=== PATIENT | female | born 1980 | race American Indian/Alaskan Native ===

== ENCOUNTER 2016-12-05 23:33 | Inpatient (IN) | payer OTHER ==
--- NOTE | 2016-12-06 00:26 | Emergency Department Report ---
HPI - General Time Seen by Provider: 12/06/16 00:05 - HPI HPI: Room 6 The patient is a 36-year-old female presenting with a chief complaint of SVT. 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 Patient denied having chest pain, shortness of breath nausea or vomiting. The patient states it made her body feel as though it was throbbing. The patient states she took a few deep breaths to see if it would help but it did not change her heart rate. 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 EMS found the patient in SVT with a heart rate of approximately 190 administered 6 of adenosine IV with resolution of the SVT. Patient is currently asymptomatic Location: Heart Duration: [see above] Quality: Palpitations Severity: 190 bpm Modifying factors: [see above] Context: [see above] Mode of transportation: EMS ED Past Medical Hx - Past Medical History Previous Medical History?: No Hx Hypertension: Yes (Patient was told that BP is high at a doctor visit.NOT on any Rx for that.) Additional medical history: h/o htn in family. - Surgical History Past Surgical History?: No - Family History Family history: no significant - Social History Smoking Status: Current Every Day Smoker (1/3 pack per day) Substance Use Type: None (denies illicit drug use), Alcohol (almost daily after work) - Medications Home Medications: Home Medications Medication Instructions Recorded Confirmed Last Taken Type No Known Home Medications [No 12/06/16 12/06/16 Unknown History Reported Home Medications] ED Review of Systems ROS: Stated complaint: ACCELERATED HEART RATE Other details as noted in HPI Comment: All other systems reviewed and negative Constitutional: denies: chills, fever Eyes: denies: eye pain, eye discharge, vision change ENT: denies: ear pain, throat pain Respiratory: denies: cough, shortness of breath, wheezing Cardiovascular: palpitations. denies: chest pain Endocrine: no symptoms reported Gastrointestinal: denies: abdominal pain, nausea, diarrhea Genitourinary: denies: urgency, dysuria, discharge Musculoskeletal: denies: back pain, joint swelling, arthralgia Skin: denies: rash, lesions Neurological: denies: headache, weakness, paresthesias Psychiatric: denies: anxiety, depression Hematological/Lymphatic: denies: easy bleeding, easy bruising Physical Exam - Physical Exam Vital Signs: Vital Signs 12/06/16 12/06/16 12/06/16 00:00 00:14 00:20 Temperature 99.2 F 99.2 F Pulse Rate 112 H 112 H Respiratory 18 17 17 Rate Blood Pressure 134/96 Blood Pressure 134/96 [Left] O2 Sat by Pulse 100 100 100 Oximetry Physical Exam: GENERAL: The patient is well-developed well-nourished female sitting on stretcher not appearing to be in acute distress. [] HEENT: Normocephalic. Atraumatic. Extraocular motions are intact. Patient has moist mucous membranes. NECK: Supple. Trachea midline CHEST/LUNGS: Clear to auscultation. There is no respiratory distress noted. HEART/CARDIOVASCULAR: Regular. There is no tachycardia. There is no gallop rub or murmur. ABDOMEN: Abdomen is soft, nontender. Patient has normal bowel sounds. There is no abdominal distention. SKIN: There is no rash. There is no edema. There is no diaphoresis. NEURO: The patient is awake, alert, and oriented. The patient is cooperative. The patient has normal speech MUSCULOSKELETAL: There is no evidence of acute injury. ED Course Vital Signs 12/06/16 12/06/16 12/06/16 00:00 00:14 00:20 Temperature 99.2 F 99.2 F Pulse Rate 112 H 112 H Respiratory 18 17 17 Rate Blood Pressure 134/96 Blood Pressure 134/96 [Left] O2 Sat by Pulse 100 100 100 Oximetry ED Medical Decision Making - Lab Data Result diagrams: 12/06/16 00:20 12/06/16 00:20 Laboratory Tests 12/06/16 12/06/16 12/06/16 00:20 00:20 00:20 WBC 7.2 RBC 4.42 Hgb 11.7 Hct 34.7 MCV 79 MCH 27 L MCHC 34 RDW 17.1 H Plt Count 178 Lymph % (Auto) 31.7 [place] % (Auto) 13.8 H Eos % (Auto) 0.4 Baso % (Auto) 1.0 Lymph # 2.3 [place] # 1.0 H Eos # 0.0 Baso # 0.1 Seg Neutrophils % 53.1 Seg Neutrophils # 3.8 PT 14.1 INR 1.10 Sodium 142 Potassium 3.8 Chloride 105.2 Carbon Dioxide 22 Anion Gap 19 BUN 11 Creatinine 0.9 Estimated GFR > 60 BUN/Creatinine Ratio 12.22 Glucose 75 Calcium 8.8 CK-MB (CK-2) 1.1 Troponin T < 0.010 NT-Pro-B Natriuret Pep 51.59 TSH Free T4 HCG, Qual Urine Opiates Screen Urine Methadone Screen Ur Barbiturates Screen Ur Phencyclidine Scrn Ur Amphetamines Screen U Benzodiazepines Scrn Urine Cocaine Screen U Marijuana (THC) Screen 12/06/16 12/06/16 12/06/16 00:20 00:20 01:01 WBC RBC Hgb Hct MCV MCH MCHC RDW Plt Count Lymph % (Auto) [place] % (Auto) Eos % (Auto) Baso % (Auto) Lymph # [place] # Eos # Baso # Seg Neutrophils % Seg Neutrophils # PT INR Sodium Potassium Chloride Carbon Dioxide Anion Gap BUN Creatinine Estimated GFR BUN/Creatinine Ratio Glucose Calcium CK-MB (CK-2) Troponin T NT-Pro-B Natriuret Pep TSH 2.510 Free T4 1.14 HCG, Qual Negative Urine Opiates Screen Presumptive negative Urine Methadone Screen Presumptive negative Ur Barbiturates Screen Presumptive negative Ur Phencyclidine Scrn Presumptive negative Ur Amphetamines Screen Presumptive negative U Benzodiazepines Scrn Presumptive negative Urine Cocaine Screen Presumptive negative U Marijuana (THC) Screen Presumptive negative - EKG Data -: EKG Interpreted by Me EKG shows normal: sinus rhythm Rate: tachycardia (110 bpm) - EKG Data When compared to previous EKG there are: other (EMS EKG reveals PSVT at 1 77 bpm ) - Radiology Data Radiology results: image reviewed (chest x-ray) interpreted by me: Chest x-ray-no focal infiltrates, no pneumothorax - Differential Diagnosis PSVT, hyperthyroidism, electrolyte imbalance Critical care attestation.: If time is entered above; I have spent that time in minutes in the direct care of this critically ill patient, excluding procedure time. ED Disposition Clinical Impression: PSVT (paroxysmal supraventricular tachycardia) Disposition: OP ADMITTED IP TO THIS HOSP Is pt being admited?: Yes Does the pt Need Aspirin: Yes Condition: Fair Time of Disposition: 01:20 (hospitalist notified)
[2016-12-06 00:37] LABS: Eosinophils % (Auto) 0.4 % (0.0-4.3); Hematocrit 34.7 % (30.3-42.9); Hemoglobin 11.7 gm/dl (10.1-14.3); Mean Corpuscular HGB Conc 34 % (30-34); Mean Corpuscular Hemoglobin 27 pg (28-32); Mean Corpuscular Volume 79 fl (79-97); Platelet Count 178 K/mm3 (140-440); Red Blood Count 4.42 M/mm3 (3.65-5.03); Red Cell Distribution Width 17.1 % (13.2-15.2); White Blood Count 7.2 K/mm3 (4.5-11.0)
[2016-12-06 00:47] LABS: INR 1.1 (0.87-1.13)
[2016-12-06 01:02] LABS: Anion Gap 19 mmol/L; BUN/Creatinine Ratio 12.22; Blood Urea Nitrogen 11 mg/dL (7-17); Calcium 8.8 mg/dL (8.4-10.2); Carbon Dioxide 22 mmol/L (22-30); Chloride 105.2 mmol/L (98-107); Glucose 75 mg/dL (65-100); Potassium 3.8 mmol/L (3.6-5.0); Sodium 142 mmol/L (137-145)
[2016-12-06 01:04] LABS: Urine Drugs of Abuse Note Disclamer
[2016-12-06 01:04] LABS: Creatine Kinase MB 1.1 ng/mL (0.0-4.0)
[2016-12-06] MEDS ORDERED: ATIVAN IV PRN ×2 (02:02)
[2016-12-06] MEDS ORDERED: TYLENOL PO PRN (02:03)
[2016-12-06] MEDS ORDERED: DULCOLAX PR PRN (02:03)
[2016-12-06] MEDS ORDERED: ZOFRAN IV PRN (02:03)
[2016-12-06] MEDS ORDERED: MILK OF MAGNESIA PO PRN (02:03)
--- NOTE | 2016-12-06 02:05 | History and Physical Report ---
History of Present Illness Date of examination: 12/06/16 History of present illness: 36-year-old woman with a history of alcohol abuse comes emergency room because she experienced her heart racing while she was at work. She consumed 3 beers a day, last drink was on Tuesday. On Tuesday night her roommate noted her hands were shaking. Patient was found to be in SVT with a rate of 170, was given 1 dose of adenosine 6 mg with good success Patient denies chest pain, shortness of breath, cough, abdominal pain, hematochezia, dysuria, frequency, focal weakness, dysarthria, fever chills, polydipsia polyuria, hot or cold intolerance, easy bruisability, or rash or bleeding from mucosal membrane, rhinorrhea, epistaxis, earache, tinnitus, blurry vision, eye discharge, anxiety, depression. Other review of systems negative PAST SURGICAL HISTORY: None SOCIAL HISTORY:Alcohol use as discussed above, no tobacco or drugs FAMILY HISTORY: Hypertension Medications and Allergies Allergies Allergy/AdvReac Type Severity Reaction Status Date / Time shellfish derived Allergy Swelling Verified 12/06/16 00:41 Home Medications Medication Instructions Recorded Confirmed Last Taken Type Metoprolol Xl [Metoprolol 25 mg PO QDAY #30 tablet 12/06/16 Unknown Rx SUCCINATE ER TAB] Exam - Physical Exam Narrative exam: Gen. appearance: Patient lying in bed, no apparent distress HEENT: Normocephalic, atraumatic, pupils equally round and reactive to light, extraocular movement intact, and no sclericterus,. No JVD or thyromegaly or nodule,neck supple, no carotid bruit ,mucous membranes moist, no exudate or erythema Heart: S1, S2, regular rate and rhythm Lungs: Clear to auscultation bilaterally, breathing comfortable Abdomen: Positive bowel sounds, nontender, nondistended, no organomegaly Extremity: Positive tremors, No edema, cyanosis, clubbing Skin: No rash, nodules, warm, dry Neuro: Oriented 3, cranial nerves II-12 intact, speech is fluent, motor and sensory intact - Constitutional Vitals: Temp Pulse Resp BP Pulse Ox 99.2 F 89 15 131/89 99 12/06/16 01:04 12/06/16 01:55 12/06/16 01:04 12/06/16 01:04 12/06/16 01:04 Results - Labs CBC & Chem 7: 12/06/16 00:20 12/06/16 00:20 Labs: Abnormal lab results 12/06/16 Range/Units 00:20 MCH 27 L (28-32) pg RDW 17.1 H (13.2-15.2) % Green % (Auto) 13.8 H (0.0-7.3) % Green # 1.0 H (0.0-0.8) K/mm3 - Imaging and Cardiology EKG: image reviewed Assessment and Plan SVT probably related to alcohol Alcohol abuse Admits medicine Start CIWA protocol with IV Ativan, check cardiac enzymes, echo consult cardiology, start DVT prophylaxis
[2016-12-06 02:09] LABS: Creatine Kinase 78 units/L (30-135)
[2016-12-06 06:02] LABS: Creatine Kinase MB 1.3 ng/mL (0.0-4.0)
--- NOTE | 2016-12-06 09:33 | XRay Report ---
AP CHEST: AP view of the chest demonstrates a normal mediastinal and cardiac contour with clear lungs and normal bony and soft tissue structures. IMPRESSION: Normal AP chest.
[2016-12-06 10:07] VITALS: BP 120/70
--- NOTE | 2016-12-06 10:22 | Discharge Summary ---
Providers - Providers Date of Admission: 12/06/16 02:06 Date of discharge: 12/06/16 Attending physician: IAM DAVIS MD Primary care physician: [employer]PERVISOR Hospitalization Reason for admission: SVT Condition: Stable Hospital course: 36-year-old woman with a history of alcohol abuse comes emergency room because she experienced her heart racing while she was at work. She consumed 3 beers a day, last drink was on Tuesday. On Tuesday night her roommate noted her hands were shaking. Patient was found to be in SVT with a rate of 170, was given 1 dose of adenosine 6 mg with good success Patient denies chest pain, shortness of breath, cough, abdominal pain, hematochezia, dysuria, frequency, focal weakness, dysarthria, fever chills, polydipsia polyuria, hot or cold intolerance, easy bruisability, or rash or bleeding from mucosal membrane, rhinorrhea, epistaxis, earache, tinnitus, blurry vision, eye discharge, anxiety, depression. Other review of systems negative and patient was monitored in the hospital reveals no recurrence. She did receive a specific counseling about drinking alcohol patient verbalized understanding. She is to follow-up with cardiology outpatient in 2 weeks for review of echocardiogram. She was started on Toprol and patient verbalize understanding of side effects associate with medication. Discharge diagnosis Paroxysmal supraventricular tachycardia Alcohol abuse Disposition: DISCHARGED TO HOME OR SELFCARE Time spent for discharge: 35 mins Core Measure Documentation - Palliative Care Palliative Care/ Comfort Measures: Not Applicable - Core Measures Any of the following diagnoses?: none - VTE Discharge Requirements Deep Vein Thrombosis/Pulmonary Embolism Present on Admission: No Exam - Physical Exam Narrative exam: VITAL SIGNS: Reviewed. GENERAL: The patient appeared well nourished and normally developed. Vital signs as documented. HEAD: No signs of head trauma. EYES: Pupils are equal. Extraocular motions intact. EARS: Hearing grossly intact. MOUTH: Oropharynx is normal. NECK: No adenopathy, no JVD. CHEST: Chest with clear breath sounds bilaterally. No wheezes, rales, or rhonchi. CARDIAC: Regular rate and rhythm. S1 and S2, without murmurs, gallops, or rubs. VASCULAR: No Edema. Peripheral pulses normal and equal in all extremities. ABDOMEN: Soft, without detectable tenderness. No sign of distention. No rebound or guarding, and no masses palpated. Bowel Sounds normal. MUSCULOSKELETAL: Good range of motion of all major joints. Extremities without clubbing, cyanosis or edema. NEUROLOGIC EXAM: Alert and oriented x 3. No focal sensory or strength deficits. Speech normal. Follows commands. PSYCHIATRIC: Mood normal. SKIN: Multiple skin tattoos - Constitutional Vitals: Temp Pulse Resp BP Pulse Ox 99.1 F 94 H 18 120/70 98 12/06/16 07:45 12/06/16 07:45 12/06/16 07:45 12/06/16 07:45 12/06/16 07:45 Plan Activity: advance as tolerated, fall precautions Diet: low fat Follow up with: PRIMARY CAREMD [Primary Care Provider] - 7 Days PEGGY ARANGO MD [Staff Physician] - 7 Days Forms: Work/School Release Form(ED) Prescriptions: Metoprolol Xl [Metoprolol SUCCINATE ER TAB] 25 mg PO QDAY #30 tablet
[2016-12-06] MEDS ORDERED: TOPROL XL PO SCH (11:00)
[2016-12-06 11:11] LABS: Creatine Kinase MB 1.4 ng/mL (0.0-4.0)
[2016-12-06 11:12] LABS: Creatine Kinase 66 units/L (30-135)
--- NOTE | 2016-12-06 12:51 | Consultation ---
History of Present Illness Consult date: 12/06/16 Consult reason: other (SVT) History of present illness: While at work yesterday, she suddenly developed palpitations prompting activation of the EMS. She was given IV adenosine 6 mg which converted her SVT to sinus rhythm. She denies dizziness, chest pain, or dyspnea. She claims that she had one brief episode of palpitations and long time ago but never sought medical attention. Past History Past Medical History: No medical history, other (none) Past Surgical History: No surgical history Social history: alcohol abuse. denies: smoking Family history: denies: CAD Medications and Allergies Allergies Allergy/AdvReac Type Severity Reaction Status Date / Time shellfish derived Allergy Swelling Verified 12/06/16 00:41 Home Medications Medication Instructions Recorded Confirmed Last Taken Type Metoprolol Xl [Metoprolol 25 mg PO QDAY #30 tablet 12/06/16 Unknown Rx SUCCINATE ER TAB] Review of Systems Constitutional: no fever, no chills Ears, nose, mouth and throat: no ear pain, no ear discharge, no sore throat Cardiovascular: palpitations, no chest pain, no orthopnea, no lightheadedness, no shortness of breath Respiratory: no cough, no hemoptysis, no shortness of breath Gastrointestinal: no abdominal pain, no nausea, no vomiting, no diarrhea, no constipation Genitourinary Female: no dysuria, no urinary frequency Rectal: no pain, no bleeding Musculoskeletal: no neck stiffness, no neck pain, no myalgias Integumentary: no rash, no pruritis Neurological: no numbness, no tingling, no headaches Endocrine: no cold intolerance, no heat intolerance Hematologic/Lymphatic: no easy bruising, no easy bleeding Allergic/Immunologic: no urticaria, no allergic rhinitis, no wheezing Physical Examination Vital Signs Last Vital Signs Temp 99.1 F 12/06/16 07:45 Pulse 94 H 12/06/16 11:34 Resp 18 12/06/16 11:25 BP 120/70 12/06/16 11:34 Pulse Ox 99 12/06/16 10:38 General appearance: no acute distress HEENT: Positive: EOMI, Normocephaly, Mucus Membranes Moist Neck: Positive: neck supple, trachea midline Cardiac: Positive: Reg Rate and Rhythm, S1/S2 Lungs: Positive: clear to auscultation Neuro: Positive: Grossly Intact Abdomen: Positive: Soft, Active Bowel Sounds. Negative: Tender Skin: Positive: Clear. Negative: Rash Musculoskeletal: Normal Range of Motion Extremities: Present: normal. Absent: edema Results 12/06/16 00:20 12/06/16 00:20 Cardiac Enzymes 12/06/16 12/06/16 Range/Units 05:19 09:53 CK-MB (CK-2) 1.3 1.4 (0.0-4.0) ng/mL - Imaging and Cardiology EKG: image reviewed EKG interpretations - Telemetry EKG Rhythm: Sinus Tachycardia - EKG Sinus rhythms and dysrhythmias: sinus tachycardia Assessment and Plan Initiate metoprolol ER 25 mg daily. Obtain echocardiogram. Follow-up at our office in 1-2 weeks. - Patient Problems (1) PSVT (paroxysmal supraventricular tachycardia) Status: Acute
--- NOTE | 2016-12-07 08:42 | Admit Criteria Form ---
Admission Criteria Documentation: SUPRAVENTRICULAR ARRHYTHMIAS Clinical Indications for Admission to Inpatient Care (Place 'X' for any and all applicable criteria): Admission is indicated by ANY ONE of the following (1)(2): [ ]I. Arrhythmia causing significant symptoms or findings as indicated by ANY ONE of the following: [ ]a) Chest pain [ ]b) Myocardial ischemia [ ]c) Altered mental status [ ]d) Dizziness, weakness, or light-headedness [ ]e) Dyspnea or hypoxemia [ ]f) Heart failure (eg, pulmonary edema)(11) [ ]II. Initiation of antiarrhythmic drug therapy is needed in patient at high risk of adverse events as indicated by ANY ONE of the following: [ ]a) Significant structural heart disease (eg, aortic stenosis, reduced ejection fraction, cardiomyopathy, congenital heart disease) [ ]b) Underlying sinus node or atrioventricular conduction disturbances [ ]c) Prolonged QT interval [ ]d) Need for treatment with antiarrhythmic that have significant proarrhythmic potential ( procainamide) [ ]e) Patient whose sinus rhythm has not been observed on ECG [X]III. Inpatient admission required rather than observation care because of ANY ONE of the following: [ ]a) Syncope [ ]b) Patient has automatic implanted cardioverter-defibrillator that is repeatedly firing, malfunctioning, or in need of immediate adjustment of settings beyond scope of ambulatory or observation care. [ ]c) Hemodynamic instability that is severe or persistent [ ]d) Unstable cardiac conduction defects indicated by ANY ONE of the following(19)(20)(21): [ ]a) Type II second-degree atrioventricular block [ ]b) Third-degree atrioventricular block [ ]C) New-onset left bundle branch block with suspected myocardial ischemia [ ]e) Severe electrolyte abnormalities requiring inpatient care [ ]f) Continuous intravenous infusion of anticoagulation, platelet inhibitor, vasoactive, or antiarrhythmic medication(14) [ ]g) Pulmonary artery catheter monitoring [ ]h) Repeat cardioversion necessary [X]i) Other condition, treatment or monitoring requiring inpatient admission [ ]IV. Underlying medical condition that necessitates inpatient care (eg, thyrotoxicosis, severe acidosis) Extended stay beyond goal length of stay may be needed for(1)(17)(18): [ ]a) Persistent hemodynamic instability or continued severe arrhythmia [ ]b) Continued monitoring during initiation of certain medications (eg, some antiarrhythmics)(17)(19) [ ]c) Precipitating cause requires ongoing inpatient care (eg, severe electrolyte abnormality, systemic infection, acidosis) [ ]d) Unstable comorbidities The original [facility] content created by [facility] has been revised. The portions of the content which have been revised are identified through the use of italic text or in bold, and [facility] has neither reviewed nor approved the modified material. All other unmodified content is copyright [facility]. Please see references footnoted in the original [facility] edition 2016 Admission Criteria Met: Yes
== END 2016-12-06 12:20 | disposition home or self-care (01) | DRG 310 ==
LOC: ED 23:33 → 4A 12-06 02:06
PROVIDERS: ADMIT Internal Medicine; ATTEND Internal Medicine
DX: I47.1 Supraventricular tachycardia (principal); F10.10 Alcohol abuse, uncomplicated; I10 Essential (primary) hypertension; F17.210 Nicotine dependence, cigarettes, uncomplicated; E05.90 Thyrotoxicosis, unspecified without thyrotoxic crisis or storm; Z91.013 Allergy to seafood; Z82.49 Family history of ischemic heart disease and other diseases of the circulatory system
CPT/HCPCS: 36415; 71010; 80048; 80307; 82550; 82553; 83880; 84439; 84443; 84484; 84703; 85025; 85610; 93005; 93010; 93306; 99406

== ENCOUNTER 2019-08-26 05:32 | Emergency (ER) | payer SELFPAY ==
[2019-08-26] MEDS ORDERED: HALOPERIDOL LACTATE 5 MG/1 ML INJ IM PRN (06:22)
[2019-08-26] MEDS ORDERED: LORazepam 2 MG/ML VIAL IM PRN (06:22)
--- NOTE | 2019-08-26 06:23 | Emergency Department Report ---
ED General Adult HPI - General Chief complaint: Psych Stated complaint: MH EVAL/DEPRESSION Time Seen by Provider: 08/26/19 06:12 Source: patient, EMS ( EMS documentation not available at time of chart dictation ), RN notes reviewed, old records reviewed Mode of arrival: Ambulatory Limitations: Other (intoxicated, guarded) - History of Present Illness Initial comments: The patient is a 39-year-old female. The patient is not known to this provider previously. The patient does not have a local primary care doctor. The patient states that she is not . During the entire history and physical examination, I'm reimbursement liaison and escorted by nurse Winnie Luo. The patient is brought to the emergency room today by EMS. Apparently, the patient drank some beer last night, and reportedly took 2 Tylenol PM, sometime between 10 PM and 2:00 in the morning, had a conversation with a friend where she endorse some depression, hopelessness, and suicidality. The patient endorses a few psychosocial stressors. She denies physical pain at this time. She states that she is not suicidal at this time. The patient does not have access to guns or firearms. The patient denies hallucinations. She is anxious to be discharged. -: hour(s) Severity scale (0 -10): 0 Improves with: none Worsens with: none - Related Data Previous Rx's Medication Instructions Recorded Last Taken Type Metoprolol Xl [Metoprolol 25 mg PO QDAY #30 tablet 12/06/16 Unknown Rx SUCCINATE ER TAB] Allergies Allergy/AdvReac Type Severity Reaction Status Date / Time shellfish derived Allergy Swelling Verified 12/06/16 00:41 ED Review of Systems ROS: Stated complaint: MH EVAL/DEPRESSION Other details as noted in HPI Constitutional: denies: fever Eyes: denies: eye discharge ENT: denies: congestion Respiratory: denies: wheezing Cardiovascular: denies: syncope Gastrointestinal: denies: abdominal pain Genitourinary: denies: dysuria Musculoskeletal: denies: back pain Skin: denies: lesions Psychiatric: anxiety. denies: homicidal thoughts, suicidal thoughts ED Past Medical Hx - Past Medical History Previous Medical History?: Yes Hx Hypertension: Yes (Patient was told that BP is high at a doctor visit.NOT on any Rx for that.) Additional medical history: h/o htn in family. - Surgical History Past Surgical History?: No - Social History Smoking Status: Light Tobacco Smoker - Medications Home Medications: Home Medications Medication Instructions Recorded Confirmed Last Taken Type Metoprolol Xl [Metoprolol 25 mg PO QDAY #30 tablet 12/06/16 Unknown Rx SUCCINATE ER TAB] ED Physical Exam - General Limitations: Other (intoxicated) General appearance: alert, appears intoxicated - Head Head exam: Present: atraumatic, normocephalic - Eye Eye exam: Present: normal appearance, EOMI. Absent: nystagmus - ENT ENT exam: Present: normal exam, normal orophraynx, mucous membranes moist, normal external ear exam - Neck Neck exam: Present: normal inspection, full ROM. Absent: tenderness, mening ismus - Respiratory Respiratory exam: Present: normal lung sounds bilaterally. Absent: respiratory distress - Cardiovascular Cardiovascular Exam: Present: regular rate, normal rhythm, normal heart sounds. Absent: bradycardia, tachycardia, irregular rhythm, systolic murmur, diastolic murmur, rubs, gallop - GI/Abdominal GI/Abdominal exam: Present: soft. Absent: distended, tenderness, guarding, rebound, rigid, pulsatile mass - Extremities Exam Extremities exam: Present: normal inspection, full ROM, other (2+ pulses noted in the bilateral upper and lower extremities. There is no palpable cord. negative Homans sign. Muscular compartments are soft. The pelvis is stable.). Absent: pedal edema, joint swelling, calf tenderness - Back Exam Back exam: Present: normal inspection. Absent: tenderness, CVA tenderness (R), CVA tenderness (L), paraspinal tenderness, vertebral tenderness - Neurological Exam Neurological exam: Present: alert, oriented X3, other (there is no facial droop. The tongue is midline. The extraocular movements are intact bilaterally. Speaking in full sentences. Minimal elevation of the base of the tongue. There is 5 out of 5 strength in the bilateral upper and lower extremities, and sensation is intact to light touch in the bilateral upper and lower extremities. Appropriate insight.). Absent: motor sensory deficit - Psychiatric Psychiatric exam: Present: anxious. Absent: homicidal ideation, suicidal ideation - Skin Skin exam: Present: warm, dry, intact, normal color. Absent: rash ED Course Vital Signs 08/26/19 08/26/19 08/26/19 05:37 06:00 09:08 Temperature 98 F 98.7 F Pulse Rate 82 77 72 Respiratory 20 15 16 Rate Blood Pressure 143/100 Blood Pressure 142/89 125/79 [Right] O2 Sat by Pulse 100 100 100 Oximetry - Reevaluation(s) Reevaluation #1: 08/26/19 07:01 Differential diagnosis, including but not limited to: Overdose, depression, dysthymia, intoxication Assessment and plan: 39-year-old female who is intoxicated at this time, who while intoxicated, consumed beer, and reportedly 2 tablets of Tylenol PM. Exact time of ingestion is unknown. Brought to the hospital by EMS after a concerned friend contacted emergency medical services. Patient placed on ER hold. Psychiatric consultation requested. Screening laboratory studies requested. Discussed this with the patient who verbalizes understanding. She is amenable to the proposed plan of care. 08/26/19 08:14 Reevaluation #2: 08/26/19 08:40 Laboratory studies reviewed and appreciated. Hypoglycemia reviewed and appr eciated. Anion gap reviewed and appreciated. Blood alcohol level elevated, Tylenol and aspirin levels not appreciably elevated. Contacted [facility] and discussed the case with a solar sales representative and assessor, [place] No specific antidote is recommended at this time. IV fluids, dextrose, supp ortive care will be provided for hypoglycemia and anion gap, likely secondary to alcohol Psychiatric consultation is requested. Reevaluation #3: 08/26/19 12:56 Patient observed multiple times. She is clinically sober at this time, alert and oriented 3, walking with a steady gait, and free from distracting injury at this time. Accu-Chek is improved. Repeat basic metabolic panel demonstrated small anion gap, so we recommended additional IV fluids, oral feeds and repeat laboratory studies. Patient is amenable to some of this, but is refusing repeat laboratory studies at this time. Patient is going to sign out AGAINST MEDICAL ADVICE. The patient is alert and oriented, sober, exhibits decision making capacity, and is free from distracting injury at this time. Risks of leaving were discussed with the patient, including , disability, paralysis, loss of quality of life. Patient was able to articulate these concerns and considerations in her own words. This entire conversation is witnessed by nurse Nirmal Sheehan Patient understands that she may return to the ER right away if and when she changes her mind. In addition, she was seen in conjunction with the psychiatry team, who cleared the patient from a psychiatry perspective. They did not recommend 1013. ED Medical Decision Making - Lab Data Result diagrams: 08/26/19 06:46 08/26/19 10:28 Vital Signs 08/26/19 08/26/19 05:37 06:00 Temperature 98 F 98.7 F Pulse Rate 82 77 Respiratory 20 15 Rate Blood Pressure 143/100 Blood Pressure 142/89 [Right] O2 Sat by Pulse 100 100 Oximetry - EKG Data -: EKG Interpreted by Me EKG shows normal: sinus rhythm, axis, intervals, ST-T waves Rate: normal - EKG Data Interpretation: normal EKG Critical care attestation.: If time is entered above; I have spent that time in minutes in the direct care of this critically ill patient, excluding procedure time. ED Disposition Clinical Impression: Mood disorder, Hypoglycemia, Alcohol abuse Disposition: -07 LEFT AGAINST MED ADVICE Is pt being admited?: No Does the pt Need Aspirin: No Condition: Undetermined Additional Instructions: As we discussed, you have left the hospital/emergency room AGAINST MEDICAL ADVICE. By leaving, you risked , disability, paralysis, permanent loss of quality of life. The ER is open 24 hours a day, 7 days a week. It never closes. Please return to the emergency room right away if and when you change your mind. If you decide not to return to the emergency room, please follow-up with the listed physician referrals as soon as possible. Please make certain to avoid alcohol consumption, and recreational drugs. Please make certain to eat at least 3-5 meals per day. Referrals: ALETA HENRY MD [Primary Care Provider] - 3-5 Days [facility] [Provider Group] - 3-5 Days [facility] [Outside] - 3-5 Days
[2019-08-26 07:51] LABS: Hematocrit 36.2 % (30.3-42.9); Hemoglobin 12.1 gm/dl (10.1-14.3); Mean Corpuscular HGB Conc 34 % (30-34); Mean Corpuscular Volume 85 fl (79-97); Red Blood Count 4.28 M/mm3 (3.65-5.03); Red Cell Distribution Width 16.7 % (13.2-15.2)
[2019-08-26 08:05] LABS: Amphetamine Screen,Urine PRESUMPTIVE NEGATIVE; Benzodiazepines Screen,Urine PRESUMPTIVE NEGATIVE; Cannabinoid Screen,Urine PRESUMPTIVE NEGATIVE; Cocaine Screen,Urine PRESUMPTIVE NEGATIVE; Methadone Screen,Urine PRESUMPTIVE NEGATIVE; Opiate Screen,Urine PRESUMPTIVE NEGATIVE
[2019-08-26 08:06] LABS: Bilirubin,Urine NEG (Negative); Blood,Urine NEG (Negative); Color,Urine Straw (Yellow); Protein,Urine <15 mg/dL mg/dL (Negative); Urobilinogen,Urine < 2.0 mg/dL (<2.0)
[2019-08-26 08:07] LABS: INR 1.11 (0.87-1.13)
[2019-08-26 08:08] LABS: Alanine Aminotransferase 29 units/L (7-56); Albumin 4.5 g/dL (3.9-5); BUN/Creatinine Ratio 16; Blood Urea Nitrogen 14 mg/dL (7-17); Calcium 9.2 mg/dL (8.4-10.2); Hemolysis Index 17
[2019-08-26] MEDS ORDERED: DEXTROSE 50% IN WATER (25GM) 50 ML SYRINGE IV PRN (08:13)
[2019-08-26] MEDS ORDERED: DEXTROSE 50% IN WATER (25GM) 50 ML SYRINGE IV ONE (08:13)
[2019-08-26] MEDS ORDERED: SODIUM CHLORIDE 0.9% 1000 ML 1,000 ML IV ONE ×2 (08:22→11:42)
[2019-08-26 08:29] LABS: Platelet Count 169 K/mm3 (140-440)
[2019-08-26] MEDS ORDERED: D5W/0.45% NACL 1,000 ML IV SCH ×2 (09:00→12:00)
[2019-08-26 09:10] VITALS: BP 125/79
[2019-08-26 11:04] LABS: BUN/Creatinine Ratio 14; Blood Urea Nitrogen 13 mg/dL (7-17); Hemolysis Index 8
== END 2019-08-26 13:08 | disposition left against medical advice (07) ==
LOC: ED 05:32
DX: F10.10 Alcohol abuse, uncomplicated (principal); E16.2 Hypoglycemia, unspecified; F39 Unspecified mood [affective] disorder; I10 Essential (primary) hypertension; F17.200 Nicotine dependence, unspecified, uncomplicated; Z91.013 Allergy to seafood
CPT/HCPCS: 36415; 80048; 80053; 80307; 80320; 81001; 82550; 82962; 83735; 84702; 85027; 85610; 93005; 93010; 96361; 96374; 96376; G0480